=== PATIENT | female | born 1940 | race Caucasian/White ===

== ENCOUNTER 2022-08-16 21:50 | Inpatient (IN) | payer MEDICARE, OTHER ==
[~2022-08-16] VITALS: Ht 160 cm; Wt 73.0 kg
[2022-08-16 21:50] VITALS: BP 152/60
--- NOTE | 2022-08-16 22:00 | NUR ---
Received 82 y/o female pt who BIB ambulance from [facility]. Pt is being admitted to ARU. Per report from SONYA Miranda, chart review and family, pt fell at home and sustained a right femur fracture. Pt did not have Surgery. Pt is currently bedrest. Pt is North [place] speaking but AAO4. Pt. has NKA. Pt is on a CCHO diet. Pt c/o pain and was given a Tylenol as per order. Dr. Negron was notified via text message. [facility] provider and WHEEL INSPECTOR were also notified fro med reconciliation.
[2022-08-16] MEDS ORDERED: ACET-3117 PO (23:24)
[2022-08-16] MEDS ORDERED: PANT40TA2 PO (23:59)
[2022-08-16] MEDS ORDERED: BLOO-668 IN (23:59)
[2022-08-16] MEDS ORDERED: HYDR-3980 PO (23:59)
[2022-08-16] MEDS ORDERED: ENOX30DI SUBCUT (23:59)
[2022-08-16] MEDS ORDERED: CLON0.3T PO (23:59)
[2022-08-16] MEDS ORDERED: ASPI-495 PO (23:59)
[2022-08-16] MEDS ORDERED: HYDR100T27 PO (23:59)
[2022-08-16] MEDS ORDERED: LINA5TAB PO (23:59)
[2022-08-16] MEDS ORDERED: SODI62.58 IV (23:59)
[2022-08-16] MEDS ORDERED: ATOR20TA PO (23:59)
[2022-08-16] MEDS ORDERED: NIFE60TA2 PO (23:59)
[2022-08-16] MEDS ORDERED: ERGO2000 PO (23:59)
[2022-08-16] MEDS ORDERED: LEVO150T8 PO (23:59)
[2022-08-16] MEDS ORDERED: GABA300C PO (23:59)
[2022-08-17] MEDS ORDERED: DEXTROSE 50% 50 ML DISP.SYRIN IV PRN ×3 (00:15→10:15)
[2022-08-17] MEDS ORDERED: INSULIN REGULAR, HUMAN 300 UNIT/3 ML VIAL SQ PRN ×2 (00:15→10:15)
[2022-08-17] MEDS: ACETAMINOPHEN 325 MG TABLET PO PRN ×3 (01:40→21:33)
[2022-08-17 04:00] VITALS: BP 152/64
--- NOTE | 2022-08-17 05:54 | NUR ---
Upon skin assessment pt is noted to have some skin discoloration/bruising on her right elbow and on her right hip. Pictures taken and documented.
[2022-08-17] MEDS: BLOOD SUGAR DIAGNOSTIC 1 EACH STRIP VI SCH ×4 (06:51→21:24)
[2022-08-17] MEDS: OXYCODONE HCL 5 MG TABLET PO PRN (09:39)
[2022-08-17] MEDS: REMEDY ESSENTIAL ZINC PASTE 113 GM TOP SCH ×2 (09:43→21:21)
[2022-08-17] MEDS ORDERED: HYDROCODONE/APAP 10-325 MG TABLET PO SCH (10:00)
[2022-08-17 11:04] VITALS: BP 157/64
[2022-08-17] MEDS: ASPIRIN EC 81 MG TABLET.DR PO SCH (11:04)
[2022-08-17] MEDS: NIFEdipine XL 60 MG TABSR PO SCH (11:04)
[2022-08-17] MEDS ORDERED: BLOOD SUGAR DIAGNOSTIC 1 EACH STRIP VI SCH (11:30)
[2022-08-17] MEDS ORDERED: Medication Not On Formulary EA (Hydralazine Hcl 1 TAB) PO SCH (13:00)
[2022-08-17] MEDS: hydrALAZINE HCL 50 MG TABLET PO SCH ×2 (14:00→21:33)
[2022-08-17 16:00] VITALS: BP 139/66
[2022-08-17] MEDS ORDERED: MIRALAX 17 GM POWD.PACK PO PRN (17:30)
[2022-08-17 20:00] VITALS: BP 151/60
--- NOTE | 2022-08-17 20:06 | NUR ---
RECEIVED REPORT FROM NOC SHIFT RN. PATIENT IS ALERT AND ORIENTED X4. VITAL SIGNS STABLE. PATIENT TOLERATES PO MEDICATIONS AND DIET WELL. PATIENT PARTICIPATES WITH PHYSICAL AND OCCUPATIONAL THERAPY. ENCOURAGES PATIENT TO USE BEDSIDE COMMODE. PATIENT ABLE TO TRANSITION TO BEDSIDE COMMODE WITH MODERATE ASSIST, HOWEVER HAD PAIN. RN GAVE PAIN MEDICATIONS ORDERED BY MD. PATIENT'S FAMILY VISITED. NO ACUTE DISTRESS. ALL NEEDS MET AT THIS TIME. CALL LIGHT WITHIN REACH. FALL PRECAUTIONS IN PLACE. RN ENDORSED CONTINUATION OF CARE TO NOC SHIFT RN FOR THE CONTINUATION OF CARE.
[2022-08-17] MEDS ORDERED: ATORVASTATIN 20 MG TABLET PO SCH (21:00)
[2022-08-17] MEDS ORDERED: ENOXAPARIN SODIUM 30 MG/0.3 ML DISP.SYRIN SUBCUT SCH (21:00)
[2022-08-17] MEDS ORDERED: ENOXAPARIN SODIUM 30 MG/0.3 ML DISP.SYRIN SUBCUT ONE (21:00)
--- NOTE | 2022-08-17 21:06 | NUR ---
BS 141 mg/dl. sliding scale coverage not given, Patient refused.
[2022-08-17] MEDS: DOCUSATE SODIUM 100 MG CAPSULE PO SCH (21:19)
[2022-08-18 05:44] VITALS: BP 110/57
[2022-08-18] MEDS: PANTOPRAZOLE SODIUM 40 MG TABLET.DR PO SCH (06:26)
[2022-08-18] MEDS: hydrALAZINE HCL 50 MG TABLET PO SCH ×3 (06:26→22:01)
[2022-08-18] MEDS: LEVOTHYROXINE SODIUM 150 MCG TABLET PO SCH (06:27)
[2022-08-18] MEDS: BLOOD SUGAR DIAGNOSTIC 1 EACH STRIP VI SCH ×2 (06:32→11:30)
[2022-08-18 07:02] LABS: HEMATOCRIT 29.3 % (31.2-41.9); MEAN CORPUSCULAR HEMOGLOBIN 29.5 uug (24.7-32.8); MEAN CORPUSCULAR VOLUME 87.8 fL (75.5-95.3); PLATELET COUNT (AUTO) 101 K/uL (179-408)
[2022-08-18 08:10] VITALS: BP 158/62
[2022-08-18 08:18] LABS: THYROID STIMULATING HORMONE 4.144 mIU/mL (0.358-3.740)
[2022-08-18] MEDS: ASPIRIN EC 81 MG TABLET.DR PO SCH (08:33)
[2022-08-18] MEDS: GLUCERNA SHAKE 237 ML CAN PO SCH (08:33)
[2022-08-18] MEDS: NIFEdipine XL 60 MG TABSR PO SCH (08:33)
[2022-08-18] MEDS: REMEDY ESSENTIAL ZINC PASTE 113 GM TOP SCH ×2 (08:33→20:20)
[2022-08-18] MEDS: LINAGLIPTIN 5 MG TABLET PO SCH (08:33)
[2022-08-18] MEDS ORDERED: ERGOCALCIFEROL PO SCH (09:00)
[2022-08-18 09:09] LABS: ALANINE AMINOTRANSFERASE 20 U/L (14-59); ALKALINE PHOSPHATASE 132 U/L (50-136); ASPARTATE AMINOTRANSFERASE 20 U/L (15-37); BILIRUBIN,TOTAL 0.9 mg/dL (0.2-1.0); CARBON DIOXIDE 24 mmol/L (21-32); CHLORIDE 106 mmol/L (98-107); CHOLESTEROL 167 mg/dL (<200); CREATININE 1.7 mg/dL (0.6-1.3); GLUCOSE 133 mg/dL (74-106); HDL CHOLESTEROL 66 mg/dL (40-60); MAGNESIUM 2.3 mg/dL (1.8-2.4); TOTAL PROTEIN, SERUM 6.8 g/dL (6.4-8.2); TRIGLYCERIDES 163 MG/DL (30-150); UREA NITROGEN, BLOOD 34 mg/dL (7-18)
[2022-08-18] MEDS: OXYCODONE HCL 5 MG TABLET PO PRN (12:35)
--- NOTE | 2022-08-18 13:05 | NUR ---
INTERDISCIPLINARY TEAM CONFERENCE
--- NOTE | 2022-08-18 14:46 | NUR ---
0730-PATIENT IN BED, ASLEEP, NO PHYSICAL OR RESPIRATORY DISTRESS NOTED. YASMEEN WITH SLING IN PLACE, NO SKIN IMPAIRMENT NOTED. PATIENT WAKES UP ON VERBAL COMMANDS, DENIES PAIN. NO S/S OF HYPO/HTN OR HYPO/HYPERGLYCEMIA NOTED. ASSIST/ORAL FLUIDS OFFERED AND DECLINED AT THIS TIME. CALL LIGHT AT REACH, ENCOURAGED TO USE IT EVERY TIME HELP IS NEEDED. 0900-SCHEDULED MEDICATION ADMINISTERED WITH NO ASE NOTED, ORAL FLUIDS TAKEN WELL.
[2022-08-18 16:21] VITALS: BP 162/65
--- NOTE | 2022-08-18 19:23 | NUR ---
PATIENT IN STABLE CONDITIONS, NO CHANGES NOTED. MEDICATED PRN FOR PAIN BASED ON PAIN LEVEL NEEDS AND ORDERED BY MD WITH HELP. NO S/S OF HYPO/HTN OR HYPO/HYPERGLYCEMIA NOTED. ASSISTED WITH ADLS AND AT ALL TIMES. ROUTINE ROUNDS AND FREQUENT VISUAL CHECKS DONE. ALL NEEDS ATTENDED WELL AND MET.
[2022-08-18] MEDS: DOCUSATE SODIUM 100 MG CAPSULE PO SCH (20:18)
[2022-08-18] MEDS: ATORVASTATIN 10 MG TABLET PO SCH (20:18)
[2022-08-18] MEDS: ENOXAPARIN SODIUM 30 MG/0.3 ML DISP.SYRIN SUBCUT SCH (20:19)
[2022-08-18 20:53] VITALS: BP 144/54
[2022-08-19 04:24] VITALS: BP 162/64
[2022-08-19] MEDS: LEVOTHYROXINE SODIUM 150 MCG TABLET PO SCH (04:29)
[2022-08-19] MEDS: PANTOPRAZOLE SODIUM 40 MG TABLET.DR PO SCH (04:29)
[2022-08-19] MEDS: hydrALAZINE HCL 50 MG TABLET PO SCH ×3 (04:29→21:09)
--- NOTE | 2022-08-19 04:30 | NUR ---
BP 162/64, HR 84 bpm. Denies any s/s of hypertension. Hydralazine 100 mg given early as scheduled. Will endorse to morning shift nurse accordingly. Will monitor.
[2022-08-19 07:49] VITALS: BP 169/62
[2022-08-19] MEDS: NIFEdipine XL 60 MG TABSR PO SCH (07:57)
[2022-08-19] MEDS: LINAGLIPTIN 5 MG TABLET PO SCH (07:57)
[2022-08-19] MEDS: ASPIRIN EC 81 MG TABLET.DR PO SCH (07:57)
[2022-08-19] MEDS: OXYCODONE HCL 5 MG TABLET PO PRN ×4 (07:58→20:12)
[2022-08-19] MEDS: REMEDY ESSENTIAL ZINC PASTE 113 GM TOP SCH ×2 (10:07→20:11)
[2022-08-19] MEDS: GLUCERNA SHAKE 237 ML CAN PO SCH (10:07)
[2022-08-19 15:50] VITALS: BP 131/53
--- NOTE | 2022-08-19 18:26 | NUR ---
no distress noted patient tolerated PT, OT well
[2022-08-19] MEDS: ENOXAPARIN SODIUM 30 MG/0.3 ML DISP.SYRIN SUBCUT SCH (20:12)
[2022-08-19] MEDS: ATORVASTATIN 10 MG TABLET PO SCH (20:12)
[2022-08-19] MEDS: DOCUSATE SODIUM 100 MG CAPSULE PO SCH (20:12)
[2022-08-20] MEDS: hydrALAZINE HCL 50 MG TABLET PO SCH ×3 (05:31→21:11)
[2022-08-20] MEDS: PANTOPRAZOLE SODIUM 40 MG TABLET.DR PO SCH (06:09)
[2022-08-20] MEDS: LEVOTHYROXINE SODIUM 150 MCG TABLET PO SCH (06:09)
[2022-08-20 07:46] VITALS: BP 165/62
[2022-08-20] MEDS: LINAGLIPTIN 5 MG TABLET PO SCH (09:02)
[2022-08-20] MEDS: ASPIRIN EC 81 MG TABLET.DR PO SCH (09:02)
[2022-08-20] MEDS: NIFEdipine XL 60 MG TABSR PO SCH (09:02)
[2022-08-20] MEDS: GLUCERNA SHAKE 237 ML CAN PO SCH (09:03)
[2022-08-20] MEDS: REMEDY ESSENTIAL ZINC PASTE 113 GM TOP SCH ×2 (09:03→21:12)
[2022-08-20] MEDS: METOPROLOL TARTRATE 25 MG TABLET PO SCH ×2 (09:05→21:07)
[2022-08-20] MEDS: OXYCODONE HCL 5 MG TABLET PO PRN (09:06)
[2022-08-20] MEDS: ACETAMINOPHEN 325 MG TABLET PO PRN ×2 (14:06→21:11)
[2022-08-20] MEDS ORDERED: KETOROLAC TROMETHAMINE 30 MG INJ IM ONE (14:45)
[2022-08-20 16:50] VITALS: BP 159/54
--- NOTE | 2022-08-20 17:38 | NUR ---
Patient A/Ox3, Czech speaking and some Ghanaian. Inventory Associate And Driver provided as needed, patient verbalizes simple needs and follows directions, cooperative with her care/nursing staff and compliant with her medication & treatment. No s/s of hypo/hyperglycemia or hypo/HTN noted. Patient tolerating meals fairly. Drinks her fluids well and as offered, no swallowing problems noted. Assisted with her ADLs/personal care/hygiene and as needed through out the shift. Patient continues under rehab for PT/OT skilled services as ordered, OOB for her therapy twice during shift, actively able to participate in therapy and raúl. therapy fairly. Medicated patient PRN for pain based on pain level needs and as ordered by MD., Patient incontinent of both, diaper changed at routine intervals and as needed; patient was seen by Dr. Negron, rehab MD. Patient with RT humerus and RT pelvic Fx. handled gently and carefully during care. All safety precautions observed. Routine rounds and frequent visual checks done. All needs attended well and met promptly and timely.
--- NOTE | 2022-08-20 19:30 | NUR ---
Change of shift report received from SONYA Pan.
[2022-08-20] MEDS: DOCUSATE SODIUM 100 MG CAPSULE PO SCH (20:59)
[2022-08-20] MEDS: ATORVASTATIN 10 MG TABLET PO SCH (21:00)
[2022-08-20] MEDS: ENOXAPARIN SODIUM 30 MG/0.3 ML DISP.SYRIN SUBCUT SCH (21:08)
--- NOTE | 2022-08-20 21:15 | NUR ---
Patient in bed alert and verbal with difficulty to communicate her needs due to language barrier. Right arm sling in place, circulation and skin check as per protocol. Tylenol given for pain patient kept comfortable, call light at reach. Addendum: 08/21/22 at 0326 by [facility] RN8 RN Patient platelet count is 101 and is on lovenox 30 mg SQ QHS. Cheryl. Kathy MATHEWS made aware she says it is okay to give as long as the patient is not bleeding.
[2022-08-21] MEDS: hydrALAZINE HCL 50 MG TABLET PO SCH ×3 (05:13→21:10)
[2022-08-21 05:18] VITALS: BP 146/55
[2022-08-21] MEDS: OXYCODONE HCL 5 MG TABLET PO PRN ×2 (05:19→17:39)
[2022-08-21] MEDS: PANTOPRAZOLE SODIUM 40 MG TABLET.DR PO SCH (06:16)
[2022-08-21] MEDS: LEVOTHYROXINE SODIUM 150 MCG TABLET PO SCH (06:16)
[2022-08-21 08:00] VITALS: BP 133/47
[2022-08-21] MEDS: NIFEdipine XL 60 MG TABSR PO SCH (08:02)
[2022-08-21] MEDS: ASPIRIN EC 81 MG TABLET.DR PO SCH (08:02)
[2022-08-21] MEDS: GLUCERNA SHAKE 237 ML CAN PO SCH ×3 (08:03→16:31)
[2022-08-21] MEDS: METOPROLOL TARTRATE 25 MG TABLET PO SCH ×2 (08:03→21:10)
[2022-08-21] MEDS: REMEDY ESSENTIAL ZINC PASTE 113 GM TOP SCH ×2 (08:04→21:07)
[2022-08-21] MEDS: LINAGLIPTIN 5 MG TABLET PO SCH (08:04)
[2022-08-21 16:00] VITALS: BP 128/48
[2022-08-21] MEDS: ATORVASTATIN 10 MG TABLET PO SCH (21:06)
[2022-08-21] MEDS: ENOXAPARIN SODIUM 30 MG/0.3 ML DISP.SYRIN SUBCUT SCH (21:06)
[2022-08-21] MEDS: DOCUSATE SODIUM 100 MG CAPSULE PO SCH (21:06)
[2022-08-21 22:40] VITALS: BP 126/68
[2022-08-22] MEDS: OXYCODONE HCL 5 MG TABLET PO PRN (05:33)
[2022-08-22] MEDS: hydrALAZINE HCL 50 MG TABLET PO SCH ×2 (05:33→15:44)
--- NOTE | 2022-08-22 05:48 | NUR ---
patient is alert, awake, no sob, respirations are even nonlabored, skin warm and dry to touch, pain is managed with pain medications and nonpharmacological interventions. heels are floated on pillows, no skin issues noted at heels, no skin issues noted at sacral area, turned repositioned every 2 hours while in the bed. no distress or events noted overnight.
[2022-08-22 06:00] VITALS: BP 176/66
[2022-08-22] MEDS: PANTOPRAZOLE SODIUM 40 MG TABLET.DR PO SCH (06:02)
[2022-08-22] MEDS: LEVOTHYROXINE SODIUM 150 MCG TABLET PO SCH (06:02)
[2022-08-22 08:00] VITALS: BP 112/58
[2022-08-22] MEDS: LINAGLIPTIN 5 MG TABLET PO SCH (08:16)
[2022-08-22] MEDS: ASPIRIN EC 81 MG TABLET.DR PO SCH (08:16)
[2022-08-22] MEDS: GLUCERNA SHAKE 237 ML CAN PO SCH ×2 (08:17→16:08)
[2022-08-22] MEDS: REMEDY ESSENTIAL ZINC PASTE 113 GM TOP SCH ×2 (08:17→21:43)
[2022-08-22] MEDS: METOPROLOL TARTRATE 25 MG TABLET PO SCH (09:00)
[2022-08-22] MEDS: NIFEdipine XL 60 MG TABSR PO SCH (09:00)
[2022-08-22] MEDS: MEGESTROL ACETATE 400 MG/10 ML LIQUID UDC PO SCH (11:36)
--- NOTE | 2022-08-22 12:59 | NUR ---
no distress noted patient tolerated PT, OT well
--- NOTE | 2022-08-22 15:05 | NUR ---
INDIVIDUALIZED PLAN OF CARE THIS WAS OBSERVED AND DONE ON 08/19/22
[2022-08-22 16:00] VITALS: BP 163/57
--- NOTE | 2022-08-22 19:00 | NUR ---
RECD PT IN BED, NO ACUTE DISTRESS NOTED. V/S TAKEN AND RECORDED.RESTED FAIRLY WELL. NO COMPLAINTS PRESENTED.
[2022-08-22 20:00] VITALS: BP 154/60
[2022-08-22] MEDS: ATORVASTATIN 10 MG TABLET PO SCH (21:37)
[2022-08-22] MEDS: METOPROLOL TARTRATE 50 MG TABLET PO SCH (21:38)
[2022-08-22] MEDS: ENOXAPARIN SODIUM 30 MG/0.3 ML DISP.SYRIN SUBCUT SCH (21:41)
[2022-08-22] MEDS: DOCUSATE SODIUM 100 MG CAPSULE PO SCH (21:47)
--- NOTE | 2022-08-23 | NUR ---
HS CARE DONE. DUE MEDS GIVEN, MONITORED FOR BP CHANGES. SLEPT ON AND OFF. INCONTINENT OF URINE, KEPT DRY AND CLEAN.
[2022-08-23] MEDS: hydrALAZINE HCL 50 MG TABLET PO SCH ×4 (00:10→22:00)
--- NOTE | 2022-08-23 00:10 | NUR ---
BP RECHECKED 169/55, PULSE,66 HYDRALAZINE TABS ADMINISTERED,
--- NOTE | 2022-08-23 01:10 | NUR ---
BP AT THIS JIPD006/68,ASYMPTOMATIC OF ANY HYPERTENSIVE CRISIS.
[2022-08-23 04:00] VITALS: BP 167/62
[2022-08-23] MEDS: LEVOTHYROXINE SODIUM 150 MCG TABLET PO SCH (06:24)
[2022-08-23] MEDS: PANTOPRAZOLE SODIUM 40 MG TABLET.DR PO SCH (06:24)
--- NOTE | 2022-08-23 07:05 | NUR ---
AWAKE ,ALERT AND ORIENTED, DUE MEDS GIVEN, BP167/62, NO C/O PRESENTED. ENDORSED TO AM NURSE IN APPARENTLY FAIR CONDITION.
--- NOTE | 2022-08-23 07:30 | NUR ---
RECEIVED REPORT FROM SALES ASSOC RN. PATIENT IS ALERT AND ORIENTED X4.. NO ACUTE DISTRESS. ALL NEEDS MET AT THIS TIME. CALL LIGHT WITHIN REACH. FALL PRECAUTIONS IN PLACE.
[2022-08-23] MEDS: METOPROLOL TARTRATE 50 MG TABLET PO SCH ×2 (08:50→21:46)
[2022-08-23] MEDS: NIFEdipine XL 60 MG TABSR PO SCH (08:50)
[2022-08-23] MEDS: ASPIRIN EC 81 MG TABLET.DR PO SCH (08:50)
[2022-08-23] MEDS: LINAGLIPTIN 5 MG TABLET PO SCH (08:50)
[2022-08-23] MEDS: MEGESTROL ACETATE 400 MG/10 ML LIQUID UDC PO SCH (08:50)
[2022-08-23] MEDS: ERGOCALCIFEROL 50,000 UNIT CAPSULE PO SCH (08:50)
[2022-08-23] MEDS: GLUCERNA SHAKE 237 ML CAN PO SCH ×2 (09:00→16:35)
[2022-08-23] MEDS: REMEDY ESSENTIAL ZINC PASTE 113 GM TOP SCH ×2 (09:01→21:53)
--- NOTE | 2022-08-23 10:34 | NUR ---
no distress noted patient tolerated PT, OT well
[2022-08-23] MEDS: OXYCODONE HCL 5 MG TABLET PO PRN ×2 (14:01→22:00)
[2022-08-23 16:00] VITALS: BP 146/49
--- NOTE | 2022-08-23 18:03 | NUR ---
resting in her bed family at bed side call light with in reach
--- NOTE | 2022-08-23 19:00 | NUR ---
recd pt in bed,no acute distress noted, afebrile, alert/oriented. repositioned for comfort.
[2022-08-23 20:00] VITALS: BP 138/45
[2022-08-23] MEDS: DOCUSATE SODIUM 100 MG CAPSULE PO SCH (21:44)
[2022-08-23] MEDS: ATORVASTATIN 10 MG TABLET PO SCH (21:45)
[2022-08-23] MEDS: ENOXAPARIN SODIUM 30 MG/0.3 ML DISP.SYRIN SUBCUT SCH (21:52)
--- NOTE | 2022-08-23 22:00 | NUR ---
hs care done, able to use bedpan, voided freely well.bp monitored, apresoline held 112/66.
[2022-08-24 04:00] VITALS: BP 122/45
--- NOTE | 2022-08-24 05:11 | NUR ---
uneventful nite. slept on and off.
[2022-08-24] MEDS: PANTOPRAZOLE SODIUM 40 MG TABLET.DR PO SCH (06:55)
[2022-08-24] MEDS: LEVOTHYROXINE SODIUM 150 MCG TABLET PO SCH (06:55)
--- NOTE | 2022-08-24 07:10 | NUR ---
RECEIVED REPORT FROM VARNISHER APPRENTICE RN. PATIENT IS ALERT AND ORIENTED X4.. NO ACUTE DISTRESS. ALL NEEDS MET AT THIS TIME. CALL LIGHT WITHIN REACH. FALL PRECAUTIONS IN PLACE.
[2022-08-24 07:35] VITALS: BP 140/47
[2022-08-24] MEDS: LINAGLIPTIN 5 MG TABLET PO SCH (08:38)
[2022-08-24] MEDS: NIFEdipine XL 60 MG TABSR PO SCH (08:38)
[2022-08-24] MEDS: ASPIRIN EC 81 MG TABLET.DR PO SCH (08:38)
[2022-08-24] MEDS: GLUCERNA SHAKE 237 ML CAN PO SCH ×2 (08:38→16:30)
[2022-08-24] MEDS: MEGESTROL ACETATE 400 MG/10 ML LIQUID UDC PO SCH (08:38)
[2022-08-24] MEDS: REMEDY ESSENTIAL ZINC PASTE 113 GM TOP SCH ×2 (08:39→20:10)
[2022-08-24] MEDS: FUROSEMIDE 20 MG TABLET PO SCH (08:57)
[2022-08-24] MEDS ORDERED: FUROSEMIDE 20 MG TABLET PO SCH (09:00)
[2022-08-24] MEDS: OXYCODONE HCL 5 MG TABLET PO PRN ×2 (12:58→20:36)
[2022-08-24] MEDS: hydrALAZINE HCL 50 MG TABLET PO SCH ×2 (13:01→22:16)
--- NOTE | 2022-08-24 13:03 | NUR ---
sitting in the chair family at bed side call light with in reach pt c/o pain ,per pt request pain medication given
[2022-08-24 16:00] VITALS: BP 135/49
[2022-08-24 20:02] VITALS: BP 124/49
[2022-08-24] MEDS: ATORVASTATIN 10 MG TABLET PO SCH (20:09)
[2022-08-24] MEDS: DOCUSATE SODIUM 100 MG CAPSULE PO SCH (20:09)
[2022-08-24] MEDS: ENOXAPARIN SODIUM 30 MG/0.3 ML DISP.SYRIN SUBCUT SCH (20:10)
--- NOTE | 2022-08-24 20:58 | NUR ---
pt c/o pain per md orders pain medication given
[2022-08-25 03:00] VITALS: BP 109/58
[2022-08-25] MEDS: hydrALAZINE HCL 50 MG TABLET PO SCH ×3 (05:50→21:30)
[2022-08-25] MEDS: PANTOPRAZOLE SODIUM 40 MG TABLET.DR PO SCH (06:00)
[2022-08-25] MEDS: LEVOTHYROXINE SODIUM 150 MCG TABLET PO SCH (06:00)
[2022-08-25 06:55] LABS: HEMATOCRIT 26.5 % (31.2-41.9); MEAN CORPUSCULAR HEMOGLOBIN 29.1 uug (24.7-32.8); MEAN CORPUSCULAR VOLUME 86.7 fL (75.5-95.3); PLATELET COUNT (AUTO) 139 K/uL (179-408)
[2022-08-25 08:00] VITALS: BP 108/42
--- NOTE | 2022-08-25 08:00 | NUR ---
Received patient lying in bed conscious and coherent. No complain at this time, no signs of distress. On room air saturating at 96%. Patient ambulate with PT using FWW, WBAT. Call light within reached, fall precaution. Needs attended
[2022-08-25] MEDS: ASPIRIN EC 81 MG TABLET.DR PO SCH (08:33)
[2022-08-25] MEDS: LINAGLIPTIN 5 MG TABLET PO SCH (08:34)
[2022-08-25] MEDS: REMEDY ESSENTIAL ZINC PASTE 113 GM TOP SCH ×2 (08:34→21:30)
[2022-08-25] MEDS: GLUCERNA SHAKE 237 ML CAN PO SCH ×2 (08:41→18:03)
[2022-08-25] MEDS: MEGESTROL ACETATE 400 MG/10 ML LIQUID UDC PO SCH (08:41)
[2022-08-25] MEDS: NIFEdipine XL 60 MG TABSR PO SCH (08:42)
[2022-08-25] MEDS: FUROSEMIDE 20 MG TABLET PO SCH (08:43)
[2022-08-25] MEDS: ACETAMINOPHEN 325 MG TABLET PO PRN (09:33)
--- NOTE | 2022-08-25 12:00 | NUR ---
Seen patient lying in bed comfortably. Served lunch. No acute changes from morning assessment Attended
[2022-08-25 13:29] VITALS: BP 146/55
--- NOTE | 2022-08-25 13:30 | NUR ---
Seen patient sitting in a wheel chair, complaining of pain 8/10 pain score. Oxycodone 15mg tab given as ordered, patient tolerated oral medications Seen and examined by Dr. Negron Observed accordingly
[2022-08-25] MEDS: OXYCODONE HCL 5 MG TABLET PO PRN (13:33)
--- NOTE | 2022-08-25 15:20 | NUR ---
INTERDISCIPLINARY TEAM CONFERENCE
[2022-08-25 20:00] VITALS: BP 135/62
[2022-08-25] MEDS: ATORVASTATIN 10 MG TABLET PO SCH (21:24)
[2022-08-25] MEDS: DOCUSATE SODIUM 100 MG CAPSULE PO SCH (21:24)
[2022-08-25] MEDS: ENOXAPARIN SODIUM 30 MG/0.3 ML DISP.SYRIN SUBCUT SCH (21:25)
--- NOTE | 2022-08-25 22:17 | NUR ---
Pt received awake in her bed, sling on right arm present. pt is able to state her needs. pt is compliant with medications, breathing is non-labored, call light is within reach
[2022-08-26 04:00] VITALS: BP 133/73
[2022-08-26] MEDS: hydrALAZINE HCL 50 MG TABLET PO SCH ×3 (06:04→22:40)
[2022-08-26] MEDS: PANTOPRAZOLE SODIUM 40 MG TABLET.DR PO SCH (06:07)
[2022-08-26] MEDS: LEVOTHYROXINE SODIUM 150 MCG TABLET PO SCH (06:17)
[2022-08-26] MEDS: NIFEdipine XL 60 MG TABSR PO SCH (08:46)
[2022-08-26] MEDS: ACETAMINOPHEN 325 MG TABLET PO PRN (08:47)
[2022-08-26] MEDS: LINAGLIPTIN 5 MG TABLET PO SCH (08:47)
[2022-08-26] MEDS: ASPIRIN EC 81 MG TABLET.DR PO SCH (08:47)
[2022-08-26] MEDS: FUROSEMIDE 20 MG TABLET PO SCH (08:47)
[2022-08-26] MEDS: MEGESTROL ACETATE 400 MG/10 ML LIQUID UDC PO SCH (08:49)
[2022-08-26] MEDS: REMEDY ESSENTIAL ZINC PASTE 113 GM TOP SCH ×2 (08:50→20:47)
[2022-08-26] MEDS: GLUCERNA SHAKE 237 ML CAN PO SCH (08:50)
[2022-08-26 09:00] VITALS: BP 175/73
[2022-08-26] MEDS: OXYCODONE HCL 5 MG TABLET PO PRN (13:25)
[2022-08-26 15:45] VITALS: BP 152/53
--- NOTE | 2022-08-26 16:48 | NUR ---
Nursing - Patient was ambulated by P.T. to the bathroom this am. had been continent of her bowels and bladder, needing assist with her simple hygiene , also noted bladder incontinence, r/t urgency, wears diaper.Sling to her right upper ext. denies any numbness, no tingling .Safety reviewed, stayed up in her wheel chair this am . Compliant in calling for assist.
[2022-08-26 20:00] VITALS: BP 139/46
[2022-08-26] MEDS: ATORVASTATIN 10 MG TABLET PO SCH (20:42)
[2022-08-26] MEDS: DOCUSATE SODIUM 100 MG CAPSULE PO SCH (20:42)
[2022-08-26] MEDS: ENOXAPARIN SODIUM 30 MG/0.3 ML DISP.SYRIN SUBCUT SCH (20:45)
[2022-08-26] MEDS: HYDROCODONE/APAP 10-325 MG TABLET PO SCH (22:23)
[2022-08-27 05:15] VITALS: BP 139/46
[2022-08-27] MEDS: HYDROCODONE/APAP 10-325 MG TABLET PO SCH ×3 (05:50→22:36)
[2022-08-27] MEDS: hydrALAZINE HCL 50 MG TABLET PO SCH ×3 (05:51→22:35)
[2022-08-27] MEDS: LEVOTHYROXINE SODIUM 150 MCG TABLET PO SCH (06:29)
[2022-08-27] MEDS: PANTOPRAZOLE SODIUM 40 MG TABLET.DR PO SCH (06:29)
[2022-08-27 07:59] VITALS: BP 146/58
[2022-08-27] MEDS: NIFEdipine XL 60 MG TABSR PO SCH (08:24)
[2022-08-27] MEDS: FUROSEMIDE 20 MG TABLET PO SCH (08:25)
[2022-08-27] MEDS: REMEDY ESSENTIAL ZINC PASTE 113 GM TOP SCH ×2 (08:25→21:00)
[2022-08-27] MEDS: LINAGLIPTIN 5 MG TABLET PO SCH (08:25)
[2022-08-27] MEDS: ASPIRIN EC 81 MG TABLET.DR PO SCH (08:25)
[2022-08-27] MEDS: MEGESTROL ACETATE 400 MG/10 ML LIQUID UDC PO SCH (08:26)
[2022-08-27 12:00] VITALS: BP 115/49
[2022-08-27 16:00] VITALS: BP 139/51
--- NOTE | 2022-08-27 18:08 | NUR ---
Pt. has been stable during the shift. No c/o pain. Walked with PT. Call light within reach. Able to make the need known. Bed in low position. Kept the pt. clean and dry. Will keep monitoring the patient.
[2022-08-27 20:00] VITALS: BP 136/50
[2022-08-27] MEDS: DOCUSATE SODIUM 100 MG CAPSULE PO SCH (22:34)
[2022-08-27] MEDS: ATORVASTATIN 10 MG TABLET PO SCH (22:36)
[2022-08-27] MEDS: ENOXAPARIN SODIUM 30 MG/0.3 ML DISP.SYRIN SUBCUT SCH (22:40)
[2022-08-28 04:00] VITALS: BP 162/62
[2022-08-28] MEDS: PANTOPRAZOLE SODIUM 40 MG TABLET.DR PO SCH (06:44)
[2022-08-28] MEDS: hydrALAZINE HCL 50 MG TABLET PO SCH ×3 (06:44→21:11)
[2022-08-28] MEDS: HYDROCODONE/APAP 10-325 MG TABLET PO SCH ×3 (06:44→21:18)
[2022-08-28] MEDS: LEVOTHYROXINE SODIUM 150 MCG TABLET PO SCH (06:44)
--- NOTE | 2022-08-28 07:30 | NUR ---
REPORT GIVEN TO SONYA MATTHEW
[2022-08-28 08:00] VITALS: BP 155/66
[2022-08-28] MEDS: REMEDY ESSENTIAL ZINC PASTE 113 GM TOP SCH ×2 (09:00→21:06)
[2022-08-28] MEDS: ASPIRIN EC 81 MG TABLET.DR PO SCH (13:08)
[2022-08-28] MEDS: FUROSEMIDE 20 MG TABLET PO SCH (13:09)
[2022-08-28] MEDS: MEGESTROL ACETATE 400 MG/10 ML LIQUID UDC PO SCH (13:09)
[2022-08-28] MEDS: LINAGLIPTIN 5 MG TABLET PO SCH (13:23)
[2022-08-28] MEDS: NIFEdipine XL 60 MG TABSR PO SCH (13:25)
[2022-08-28 16:00] VITALS: BP 112/61
--- NOTE | 2022-08-28 18:00 | NUR ---
Pt received ambulating with PT, Pt was medicated with norco at 0630 am. Pt back to bed, spoke with family members at bedside regarding pt health condition. Pt understand the word medicine able to swallow whole tab no aspiration observed. Pt was assisted with assisted device no SOB observed. Pt was medicated with [place] as order. Endorse care to incoming nurse.
[2022-08-28 20:00] VITALS: BP 138/68
[2022-08-28] MEDS: DOCUSATE SODIUM 100 MG CAPSULE PO SCH (21:06)
[2022-08-28] MEDS: ATORVASTATIN 10 MG TABLET PO SCH (21:06)
[2022-08-28] MEDS: ENOXAPARIN SODIUM 30 MG/0.3 ML DISP.SYRIN SUBCUT SCH (21:15)
[2022-08-29] MEDS: hydrALAZINE HCL 50 MG TABLET PO SCH ×3 (05:33→22:16)
[2022-08-29] MEDS: HYDROCODONE/APAP 10-325 MG TABLET PO SCH ×3 (05:34→22:12)
[2022-08-29] MEDS: PANTOPRAZOLE SODIUM 40 MG TABLET.DR PO SCH (06:07)
[2022-08-29] MEDS: LEVOTHYROXINE SODIUM 150 MCG TABLET PO SCH (06:09)
[2022-08-29 06:33] VITALS: BP 146/71
[2022-08-29 07:57] VITALS: BP 130/47
[2022-08-29] MEDS: MEGESTROL ACETATE 400 MG/10 ML LIQUID UDC PO SCH (09:40)
[2022-08-29] MEDS: REMEDY ESSENTIAL ZINC PASTE 113 GM TOP SCH ×2 (09:40→22:07)
[2022-08-29] MEDS: FUROSEMIDE 20 MG TABLET PO SCH (09:41)
[2022-08-29] MEDS: NIFEdipine XL 60 MG TABSR PO SCH (09:42)
[2022-08-29] MEDS: LINAGLIPTIN 5 MG TABLET PO SCH (09:43)
[2022-08-29] MEDS: ASPIRIN EC 81 MG TABLET.DR PO SCH (09:43)
[2022-08-29 16:11] VITALS: BP 140/45
--- NOTE | 2022-08-29 19:17 | NUR ---
Pt received ambulating with PT, Pt did not c/o any pain. Pt back to bed, spoke with family members at bedside regarding pt health condition and pt did not requested pain medication.. Pt understand the word medicine able to swallow whole tab no aspiration observed. Pt was assisted with assisted device to BR no SOB observed. Pt was medicated with [place] as routine order. Endorse care to incoming nurse
--- NOTE | 2022-08-29 19:30 | NUR ---
round made patient in bed watching tv no complains made advised to call for assistance call light placed with in reach .
[2022-08-29 20:00] VITALS: BP 139/58
--- NOTE | 2022-08-29 21:00 | NUR ---
rounds made patient in bed sleeping breathing even and unlabored no respiratory distress noted. no s/s of pain noted will given schedule medication when patient awaken .
--- NOTE | 2022-08-29 22:02 | NUR ---
patient wake due medication given and tolerated with water .
[2022-08-29] MEDS: DOCUSATE SODIUM 100 MG CAPSULE PO SCH (22:06)
[2022-08-29] MEDS: ATORVASTATIN 10 MG TABLET PO SCH (22:06)
[2022-08-29] MEDS: ENOXAPARIN SODIUM 30 MG/0.3 ML DISP.SYRIN SUBCUT SCH (22:08)
[2022-08-30] MEDS: hydrALAZINE HCL 50 MG TABLET PO SCH ×3 (06:38→21:10)
[2022-08-30] MEDS: LEVOTHYROXINE SODIUM 150 MCG TABLET PO SCH (06:39)
[2022-08-30] MEDS: HYDROCODONE/APAP 10-325 MG TABLET PO SCH ×3 (06:39→21:11)
[2022-08-30] MEDS: PANTOPRAZOLE SODIUM 40 MG TABLET.DR PO SCH (06:39)
--- NOTE | 2022-08-30 06:58 | NUR ---
uneventful shift patient slept most of the night needs attended to due medication scan and given see emar .
[2022-08-30 07:45] VITALS: BP 121/62
[2022-08-30 08:52] LABS: HEMATOCRIT 26.7 % (31.2-41.9); MEAN CORPUSCULAR HEMOGLOBIN 28.5 uug (24.7-32.8); MEAN CORPUSCULAR VOLUME 86.6 fL (75.5-95.3); PLATELET COUNT (AUTO) 154 K/uL (179-408)
[2022-08-30] MEDS: ERGOCALCIFEROL 50,000 UNIT CAPSULE PO SCH (09:13)
[2022-08-30] MEDS: NIFEdipine XL 60 MG TABSR PO SCH (09:13)
[2022-08-30] MEDS: ASPIRIN EC 81 MG TABLET.DR PO SCH (09:13)
[2022-08-30] MEDS: LINAGLIPTIN 5 MG TABLET PO SCH (09:13)
[2022-08-30] MEDS: FUROSEMIDE 20 MG TABLET PO SCH (09:13)
[2022-08-30] MEDS: MEGESTROL ACETATE 400 MG/10 ML LIQUID UDC PO SCH (09:14)
[2022-08-30] MEDS: REMEDY ESSENTIAL ZINC PASTE 113 GM TOP SCH ×2 (09:14→21:11)
[2022-08-30 09:22] LABS: ALANINE AMINOTRANSFERASE 24 U/L (14-59); ALKALINE PHOSPHATASE 210 U/L (50-136); ASPARTATE AMINOTRANSFERASE 18 U/L (15-37); BILIRUBIN,TOTAL 0.7 mg/dL (0.2-1.0); CARBON DIOXIDE 22 mmol/L (21-32); CHLORIDE 110 mmol/L (98-107); CREATININE 2.2 mg/dL (0.6-1.3); GLUCOSE 127 mg/dL (74-106); MAGNESIUM 2.5 mg/dL (1.8-2.4); PHOSPHOROUS 4.3 mg/dL (2.5-4.9); POTASSIUM 4.8 mmol/L (3.5-5.1); UREA NITROGEN, BLOOD 68 mg/dL (7-18)
[2022-08-30] MEDS: OXYCODONE HCL 5 MG TABLET PO PRN (13:25)
[2022-08-30 16:40] VITALS: BP 140/54
--- NOTE | 2022-08-30 18:22 | NUR ---
Patient alert and oriented, verbalizes needs and follows directions. OOB daily sitting at bedside. Requires of one person's assist with her transfers bed/w/c. VSS during shift, medicated PRN for pain based on pain level needs/as ordered by MD and effective. Continues under rehab for PT/OT skilled services, patient raúl. therapy well and able to actively participate in therapy. Fall precautions observed, a clutter free environment provided, routine rounds and frequent visual checks done. All needs attended well and met through out the shift.
--- NOTE | 2022-08-30 20:00 | NUR ---
NSG: Received patient lying in bed. alert and oriented, pleasant upon approach. Denies pain or discomfort at this time. call light w/in reach.
[2022-08-30 20:27] VITALS: BP 141/51
[2022-08-30] MEDS: ENOXAPARIN SODIUM 30 MG/0.3 ML DISP.SYRIN SUBCUT SCH (21:00)
[2022-08-30] MEDS: ATORVASTATIN 10 MG TABLET PO SCH (21:10)
[2022-08-30] MEDS: DOCUSATE SODIUM 100 MG CAPSULE PO SCH (21:11)
[2022-08-31 04:20] VITALS: BP 166/62
[2022-08-31] MEDS: hydrALAZINE HCL 50 MG TABLET PO SCH ×3 (05:37→21:25)
[2022-08-31] MEDS: HYDROCODONE/APAP 10-325 MG TABLET PO SCH ×3 (05:38→21:25)
[2022-08-31] MEDS: PANTOPRAZOLE SODIUM 40 MG TABLET.DR PO SCH (05:42)
[2022-08-31] MEDS: LEVOTHYROXINE SODIUM 150 MCG TABLET PO SCH (06:00)
[2022-08-31 06:59] LABS: HEMATOCRIT 25.3 % (31.2-41.9); MEAN CORPUSCULAR HEMOGLOBIN 28.7 uug (24.7-32.8); MEAN CORPUSCULAR VOLUME 86.8 fL (75.5-95.3); PLATELET COUNT (AUTO) 149 K/uL (179-408)
[2022-08-31 07:02] LABS: MAGNESIUM 2.3 mg/dL (1.8-2.4); PHOSPHOROUS 4.6 mg/dL (2.5-4.9)
[2022-08-31 08:20] VITALS: BP 174/63
[2022-08-31] MEDS: LINAGLIPTIN 5 MG TABLET PO SCH (08:33)
[2022-08-31] MEDS: NIFEdipine XL 60 MG TABSR PO SCH (08:34)
[2022-08-31] MEDS: REMEDY ESSENTIAL ZINC PASTE 113 GM TOP SCH ×2 (08:34→21:28)
[2022-08-31] MEDS: MEGESTROL ACETATE 400 MG/10 ML LIQUID UDC PO SCH (08:34)
[2022-08-31] MEDS: ASPIRIN EC 81 MG TABLET.DR PO SCH (08:34)
[2022-08-31 15:40] VITALS: BP 160/61
--- NOTE | 2022-08-31 18:18 | NUR ---
patient is alert, oriented x3, no sob, respirations are even nonlabored, skin warm and dry to touch, both heel skin inspected, no issues noted. patient tolerated PT, OT well. no distress noted.
[2022-08-31 18:28] LABS: *BILIRUBIN,URIN NEGATIVE (NEGATIVE); *BLOOD, URINE NEGATIVE (NEGATIVE); *CLARITY,URINE CLEAR (CLEAR); *COLOR,URINE YELLOW (YELLOW); *KETONES,URINE NEGATIVE (NEGATIVE); *UROBILINOGEN,URINE 0.2 E.U./dl (NORMAL); LEUKOCYTE ESTERASE ,URINE NEGATIVE (NEGATIVE); NITRITE, URINE NEGATIVE (NEGATIVE); UGLUCOSE NEGATIVE (NEGATIVE)
[2022-08-31 18:29] LABS: RBC,URINE 0-3 /HPF (0-3); WBC,URINE 0-3 /HPF (0-3)
[2022-08-31 18:38] LABS: *CREATININE,URINE 57.5 mg/dL (30-125); *URINE TOTAL PROTEIN RANDOM 37.6 mg/dL (<150/24HR)
[2022-08-31] MEDS: ATORVASTATIN 10 MG TABLET PO SCH (21:25)
[2022-08-31] MEDS: DOCUSATE SODIUM 100 MG CAPSULE PO SCH (21:25)
[2022-08-31] MEDS: ENOXAPARIN SODIUM 30 MG/0.3 ML DISP.SYRIN SUBCUT SCH (21:28)
[2022-08-31 21:54] VITALS: BP 134/46
--- NOTE | 2022-09-01 03:57 | NUR ---
AAOx4 Patient admitted for a right pelvic fracture and right shoulder fracture, but no surgical intervention. All needs attended. VSS. No acute distress noted. Compliant with meds. On [place] given as scheduled times. Right shoulder arm sling in placed. Purewick to suction, moderate amount of yellow urine noted. Kept comfortable. Will monitor patient. Patient possible discharge today to SNF?
[2022-09-01] MEDS: HYDROCODONE/APAP 10-325 MG TABLET PO SCH ×2 (05:27→13:49)
[2022-09-01] MEDS: hydrALAZINE HCL 50 MG TABLET PO SCH ×2 (05:52→13:45)
[2022-09-01] MEDS: PANTOPRAZOLE SODIUM 40 MG TABLET.DR PO SCH (06:09)
[2022-09-01] MEDS: LEVOTHYROXINE SODIUM 150 MCG TABLET PO SCH (06:09)
[2022-09-01 06:41] VITALS: BP 110/53
[2022-09-01 07:49] VITALS: BP 146/51
[2022-09-01] MEDS: ASPIRIN EC 81 MG TABLET.DR PO SCH (08:27)
[2022-09-01] MEDS: LINAGLIPTIN 5 MG TABLET PO SCH (08:27)
[2022-09-01] MEDS: MEGESTROL ACETATE 400 MG/10 ML LIQUID UDC PO SCH (08:29)
[2022-09-01] MEDS: NIFEdipine XL 60 MG TABSR PO SCH (08:29)
[2022-09-01] MEDS: REMEDY ESSENTIAL ZINC PASTE 113 GM TOP SCH (08:30)
[2022-09-01] MEDS: OXYCODONE HCL 5 MG TABLET PO PRN ×2 (08:31→18:18)
[2022-09-01] MEDS ORDERED: GLUCERNA SHAKE 237 ML CAN PO SCH (09:00)
[2022-09-01 13:06] LABS: ALBUMIN 3.1 g/dL (2.9-4.4); ALPHA-1-GLOBULIN 0.4 g/dL (0.0-0.4); ALPHA-2-GLOBULIN 0.6 g/dL (0.4-1.0); GAMMA GLOBULIN 1.1 g/dL (0.4-1.8); M-SPIKE Not Observed g/dL (Not Observed)
[2022-09-01] MEDS ORDERED: CLONIDINE HCL 0.1 MG TABLET PO ONE ×2 (17:00→18:10)
[2022-09-01 18:18] VITALS: BP 174/68
--- NOTE | 2022-09-01 18:35 | NUR ---
Pt discharged from the unit in stable condition via te, accompanied by Eufemia and Dwight, bag mender from [facility], with pt's dtr to follow in her car. Pt's BPs were running high. I spoke to Dr. Correa who ordered clonidine twice and we also gave her her oxyir prior to d/c. Maggy, the supervising nurse at [facility], was notified of high BPs, he spoke to Dr. Correa and both were in agreement to continue with admission to [facility]. Pt laughing with her daughter prior to discharge. No s/s of distress other than high BP noted. No SOB at this time.
[2022-09-03] MEDS ORDERED: FUROSEMIDE 20 MG TABLET PO SCH (09:00)
== END 2022-09-01 18:30 | DRG 559 ==
PROVIDERS: ADMIT Physical Medicine & Rehabilitation Pain Medicine; ATTEND Physical Medicine & Rehabilitation Pain Medicine
DX: S32.511D Fracture of superior rim of right pubis, subsequent encounter for fracture with routine healing (principal); N17.0 Acute kidney failure with tubular necrosis; D68.59 Other primary thrombophilia; E44.0 Moderate protein-calorie malnutrition; I50.32 Chronic diastolic (congestive) heart failure; I13.0 Hypertensive heart and chronic kidney disease with heart failure and stage 1 through stage 4 chronic kidney disease, or unspecified chronic kidney disease; I31.39 Other pericardial effusion (noninflammatory); S42.214D Unspecified nondisplaced fracture of surgical neck of right humerus, subsequent encounter for fracture with routine healing; W01.0XXD Fall on same level from slipping, tripping and stumbling without subsequent striking against object, subsequent encounter; E11.9 Type 2 diabetes mellitus without complications; E78.5 Hyperlipidemia, unspecified; I10 Essential (primary) hypertension; E03.9 Hypothyroidism, unspecified; D50.9 Iron deficiency anemia, unspecified; D69.6 Thrombocytopenia, unspecified; E11.22 Type 2 diabetes mellitus with diabetic chronic kidney disease; E66.9 Obesity, unspecified; Z68.28 Body mass index [BMI] 28.0-28.9, adult; I34.0 Nonrheumatic mitral (valve) insufficiency; J45.909 Unspecified asthma, uncomplicated; K74.60 Unspecified cirrhosis of liver; N18.9 Chronic kidney disease, unspecified; K21.9 Gastro-esophageal reflux disease without esophagitis
CPT/HCPCS: 36415; 82652; 83735; 83970; 84100; 84155; 84165; 84300; 84443; 85025; 97535-GO-CO; J1650; J1815; J1885; J8999